=== PATIENT | female | born 1970 | race Caucasian/White ===

== ENCOUNTER 2016-05-17 08:16 | Emergency (ER) | payer OTHER ==
[~2016-05-17] VITALS: Ht 172.7 cm; Wt 122.0 kg
[~2016-05-17 08:16] MED LIST: BENA20TA PO; CLON1 PO; CYMB60CA PO; IBUP800T23 PO
[2016-05-17 08:17] VITALS: BP 168/78; PULSE 93; RESP 18; TEMP 98.7; O2SAT 97
[2016-05-17] MEDS ORDERED: BENA20TA PO (08:22)
[2016-05-17] MEDS ORDERED: CLON1 PO (08:22)
--- NOTE | 2016-05-17 08:24 | PD ---
HPI Chief Complaint: Fall Time Seen by Provider: 08:19 Travel History International Travel<30 days: No Contact w/Intl Traveler<30days: No Traveled to known affect area: No History of Present Illness HPI 45-year-old female patient presents to the ER today brought in by EMS after she states that she tripped this morning on her cat and fell hitting her chin and her lower back region. She states that she initially she was in so much pain she could not get up on her own. She states that her pain is currently an 8 out of 10. She denies any head injury or loss of consciousness. She states that the pain worsens with movement of her back. She denies any numbness or weakness in the legs. She denies any incontinence. Modifying Factors: None Associated Signs & Symptoms: Trip and fall, lower back injury and chin injury Risk Factors: None PFSH Past Medical History Depression: Yes Cardiovascular Problems: Yes Hypertension: Yes Kidney Stones: Yes (X3) Menopausal: Yes Past Surgical History Section: Yes (X2) Cholecystectomy: Yes Hysterectomy: Yes Social History Alcohol Use: No Tobacco Use: Yes (1PPD) Substance Use: No Allergies-Medications (Allergen,Severity, Reaction): Coded Allergies: No Known Allergies (Verified , 02/09/15) Reported Meds & Prescriptions Reported Meds & Active Scripts Active Reported Klonopin (Clonazepam) 1 Mg Tab 1 Mg PO DAILY Benazepril (Benazepril HCl) 20 Mg Tab 20 Mg PO BID Review of Systems Except as stated in HPI: all other systems reviewed are Neg Physical Exam Narrative GENERAL: Well-nourished, well-developed middle age white female patient in no acute distress. SKIN: Warm and dry. HEAD: Normocephalic. Mild ecchymosis of the inferior portion of the chin with no obvious deformities. Mildly tender palpation. EYES: No scleral icterus. No injection or drainage. NECK: Supple, trachea midline. CARDIOVASCULAR: Regular rate and rhythm without murmurs, gallops, or rubs. RESPIRATORY: Breath sounds equal bilaterally. No accessory muscle use. GASTROINTESTINAL: Abdomen soft, non-tender, nondistended. MUSCULOSKELETAL: No cyanosis, or edema. BACK: Tender to palpation in the right lower lumbar paraspinal area without obvious deformity. No CVA tenderness. Pelvis: Stable and nontender to palpation. Nontender range of motion at the hips. NEUROLOGICAL: Awake and alert. Cranial nerves II through XII intact. Motor and sensory grossly within normal limits. Five out of 5 muscle strength in all muscle groups. Normal speech. Data Data Last Documented VS Vital Signs Date Time Temp Pulse Resp B/P Pulse Ox O2 Delivery O2 Flow Rate FiO2 05/17/16 08:20 18 Room Air 05/17/16 08:17 98.7 93 168/[address] Lumb Spine W/O Contrast (05/17/16 08:19) Ct Facial Bones W/O Iv Cont (05/17/16 08:19) MDM Medical Decision Making Medical Screen Exam Complete: Yes Emergency Medical Condition: Yes Medical Record Reviewed: Yes Interpretation(s) Last [address] 05/17/16818 Signed Impressions: Service Date/Time: Tuesday, May 17, 2016 08:40 - CONCLUSION: 1. No acute fracture or malalignment. 2. Degenerative disc change at the L3-4 through L5- S1 levels. Jimenez Sheikh MD Differential Diagnosis Trip and fall, chin injury, lower back injuryfractures versus contusions versus strain Narrative Course CAT scans of the facial area and chin and L-spine did not reveal any signs of acute injuries. At this point, my plan would be to release the patient with follow-up to primary care physician. Return for any worsening in pain or new symptoms as needed. The plan has been discussed with the patient and she states understanding. Diagnosis Primary Impression: Chin contusion Additional Impression: CONTUSION OF LOWER BACK AND PELVIS, INITIAL ENCOUNTER Med/Other Pt SpecificInfo: Prescription(s) given Scripts Tramadol 50 Mg Tab50 Mg PO Q6H PRN (PAIN) #15 TAB Ref 0 Prov:Nelia Weir MD 05/17/16 Disposition: DISCHARGE HOME Condition: Stable Nelia Weir MD May 17, 2016 08:24
--- NOTE | 2016-05-17 09:14 | RADRPT ---
EXAM DATE/TIME: 05/17/2016 08:40 [facility] COMPARISON: No previous studies available for comparison. INDICATIONS : Patient fell, complains of right flank pain RADIATION DOSE: 37.49 CTDIvol (mGy) MEDICAL HISTORY : Hypertension. SURGICAL HISTORY : Cholecystectomy. Hysterectomy. ENCOUNTER: Initial ACUITY: 1 day PAIN SCALE: 4/10 LOCATION: Right flank TECHNIQUE: Volumetric scanning of the lumbar spine was performed. Multiplanar reconstructions in the sagittal, coronal and oblique axial planes were performed. Using automated exposure control and adjustment of the mA and/or kV according to patient size, radiation dose was kept as low as reasonably achievable t o obtain optimal diagnostic quality images. FINDINGS: VERTEBRAE: Normal vertebral body height. Degenerative disc changes are present at the L3-4 through L5-S1 levels with disc space narrowing and mild hypertrophic change. There is mild scoliosis. ALIGNMENT: No evidence of subluxation. The axial images demonstrate that the vertebral bodies and posterior elements are intact with no evid ence of fracture. The visualized portions upper sacrum are intact as well. There is a mild scoliosis. Degenerative changes are again noted at the L3-4 through L5-S1 levels with disc osteophyte complexes . There are degenerative changes involving the lower facet joints. CONCLUSION: 1. No acute fracture or malalignment. 2. Degenerative disc change at the L3-4 through L5-S1 levels. Jimenez Sheikh MD on May 17, 2016 at 9:10 Board Certified Radiologist. This report was verified electronically.
--- NOTE | 2016-05-17 09:32 | RADRPT ---
EXAM DATE/TIME: 05/17/2016 08:35 [facility] COMPARISON: No previous studies available for comparison. INDICATIONS: Patient fell, hit chin RADIATION DOSE: 52.75 CTDIvol (mGy) MEDICAL HISTORY: Hypertension. SURGICAL HISTORY: Cholecystectomy. Hysterectomy. ENCOUNTER: Initial ACUITY: 1 day PAIN SCORE: 3/10 LOCATION: Chin TECHNIQUE: Volumetric scanning of the facial bones was performed. Using automated exposure control and adjustme nt of the mA and/or kV according to patient size, radiation dose was kept as low as reasonably achiev able to obtain optimal diagnostic quality images. FINDINGS: There is no acute fracture or dislocation of the facial bones. Mucous retention cyst is noted within the left maxillary sinus. Mild mucosal thickening is noted within the maxillary sinuses and bilater al ethmoid air cells. No air fluid is noted within the paranasal sinuses. The orbits are intact. T he mandible is intact without fracture. CONCLUSION: 1. No acute fracture or dislocation of the facial bones. 2. Mucous retention cyst within the left maxillary sinus as well as mild mucosal thickening involvin g the bilateral maxillary and ethmoid air cells. Khris Castillo MD on May 17, 2016 at 9:04 Board Certified Radiologist. This report was verified electronically.
[2016-05-17] MEDS ORDERED: TRAM50TA PO (09:42)
[2016-05-17 10:09] VITALS: BP 130/77; TEMP 97.8
== END 2016-05-17 10:09 | disposition home or self-care (01) ==
LOC: NEPC 08:16
DX: S00.83XA Contusion of other part of head, initial encounter (principal); S30.0XXA Contusion of lower back and pelvis, initial encounter; I10 Essential (primary) hypertension; F17.210 Nicotine dependence, cigarettes, uncomplicated; W01.0XXA Fall on same level from slipping, tripping and stumbling without subsequent striking against object, initial encounter; Y92.009 Unspecified place in unspecified non-institutional (private) residence as the place of occurrence of the external cause
CPT/HCPCS: 70486; 72131

== ENCOUNTER 2017-01-11 08:12 | Inpatient (IN) | payer OTHER ==
[2017-01-11] VITALS (7 sets, daily range): BP systolic 125–171; BP diastolic 60–79; PULSE 96–128; RESP 16–20; TEMP 98.9–101.1; O2SAT 96–100
[~2017-01-11] VITALS: Ht 172.7 cm; Wt 140.2 kg
[~2017-01-11 08:12] MED LIST changes: -CYMB60CA PO; -IBUP800T23 PO; +TRAM50TA PO
[2017-01-11] MEDS ORDERED: DOXY100C PO (08:30)
[2017-01-11] MEDS ORDERED: SODIUM CHLOR 0.9% 1000 ML INJ 1,000 ML IV ONE ×3 (08:36)
[2017-01-11] MEDS ORDERED: SODIUM CHLOR 0.9% 1000 ML INJ 600 ML IV ONE (08:36)
[2017-01-11] MEDS ORDERED: ACETAMINOPHEN 325 MG TAB PO ONE (08:45)
--- NOTE | 2017-01-11 08:49 | PD ---
HPI Chief Complaint: Respiratory Symptoms Time Seen by Provider: 08:29 Travel History International Travel<30 days: No Contact w/Intl Traveler<30days: No Traveled to known affect area: No History of Present Illness HPI 46-year-old female presents with fever, cough and general ill feeling for the past couple of weeks. She states her primary care physician placed her on Augmentin and then switched her to doxycycline but she still not feeling good. She states she's had a couple episodes where she's coughed so much she threw up. She states she took Motrin this morning at 6:30 AM. She denies any other concurrent complaints. She feels worse when she moves around. She states she has not had any imaging or blood work and this was all through her primary care physician. PFSH Past Medical History Anxiety: Yes Depression: Yes Cardiovascular Problems: Yes Diminished Hearing: No Hypertension: Yes Kidney Stones: Yes (X3) ?: Not Menopausal: Yes Past Surgical History Section: Yes (X2) Cholecystectomy: Yes Hysterectomy: Yes Social History Alcohol Use: No Tobacco Use: Yes (1PPD) Substance Use: No Allergies-Medications (Allergen,Severity, Reaction): Coded Allergies: No Known Allergies (Verified , 02/09/15) Reported Meds & Prescriptions Reported Meds & Active Scripts Active Reported Doxycycline Hyclate 100 Mg Cap 100 Mg PO BID Klonopin (Clonazepam) 1 Mg Tab 1 Mg PO DAILY Benazepril (Benazepril HCl) 20 Mg Tab 20 Mg PO DAILY Review of Systems Except as stated in HPI: all other systems reviewed are Neg Physical Exam Narrative GENERAL: Well-nourished, well-developed patient. SKIN: Warm and dry. HEAD: Normocephalic and atraumatic. EYES: No injection or drainage. ENT: No nasal drainage noted. NECK: Supple, trachea midline. CARDIOVASCULAR: Regular rate and rhythm RESPIRATORY: Breath sounds equal bilaterally at apices. No accessory muscle use. GASTROINTESTINAL: Abdomen soft, non-tender, nondistended. EXTREMITIES: No edema. NEUROLOGICAL: Awake and alert. Motor and sensory grossly within normal limits. Normal speech. Data Data Last Documented VS Vital Signs Date Time Temp Pulse Resp B/P (MAP) Pulse Ox O2 Delivery O2 Flow Rate FiO2 01/11/17 08:49 97 Room Air 01/11/17 08:14 101.0 128 20 Orders Orders Electrocardiogram (01/11/17 08:36) Complete Blood Count With Diff (01/11/17 08:36) Comprehensive Metabolic Panel (01/11/17 08:36) Prothrombin Time / Inr (Pt) (01/11/17 08:36) Act Partial Throm Time (Ptt) (01/11/17 08:36) Lactic Acid Sepsis Protocol (01/11/17 08:36) Magnesium (Mg) (01/11/17 08:36) Phosphorus (Po4) (01/11/17 08:36) Urinalysis - C+S If Indicated (01/11/17 08:36) Influenzae A/B Antigen (01/11/17 08:36) Blood Culture (01/11/17 08:36) Chest, Single Ap (01/11/17 08:36) Ecg Monitoring (01/11/17 08:36) Iv Access Insert/Monitor (01/11/17 08:36) Oximetry (01/11/17 08:36) Acetaminophen (Tylenol) (01/11/17 08:45) Sodium Chlor 0.9% 1000 Ml Inj (Ns 1000 M (01/11/17 08:36) Sodium Chlor 0.9% 1000 Ml Inj (Ns 1000 M (01/11/17 08:36) Sodium Chlor 0.9% 1000 Ml Inj (Ns 1000 M (01/11/17 08:36) Sodium Chlor 0.9% 1000 Ml Inj (Ns 1000 M (01/11/17 08:36) Ceftriaxone Inj (Rocephin Inj) (01/11/17 08:58) Azithromycin Inj (Zithromax Inj) (01/11/17 08:58) Urine Culture (01/11/17 08:45) Potassium Chloride Eff (K-Lyte Cl Eff) (01/11/17 10:00) Admit Order (Ed Use Only) (01/11/17 10:27) Labs Laboratory Tests Test 01/11/17 08:35 01/11/17 08:40 01/11/17 08:45 White Blood Count 21.4 TH/MM3 Red Blood Count 3.97 MIL/MM3 Hemoglobin 12.5 GM/DL Hematocrit 37.1 % Mean Corpuscular Volume 93.4 FL Mean Corpuscular Hemoglobin 31.5 PG Mean Corpuscular Hemoglobin Concent 33.7 % Red Cell Distribution Width 13.2 % Platelet Count 293 TH/MM3 Mean Platelet Volume 7.1 FL Neutrophils (%) (Auto) 87.9 % Lymphocytes (%) (Auto) 6.1 % Monocytes (%) (Auto) 4.9 % Eosinophils (%) (Auto) 0.9 % Basophils (%) (Auto) 0.2 % Neutrophils # (Auto) 18.8 TH/MM3 Lymphocytes # (Auto) 1.3 TH/MM3 Monocytes # (Auto) 1.1 TH/MM3 Eosinophils # (Auto) 0.2 TH/MM3 Basophils # (Auto) 0.0 TH/MM3 CBC Comment DIFF FINAL Differential Comment Prothrombin Time 11.4 SEC Prothromb Time International Ratio 1.0 RATIO Activated Partial Thromboplast Time 33.0 SEC Blood Urea Nitrogen 7 MG/DL Creatinine 0.72 MG/DL Random Glucose 106 MG/DL Total Protein 7.2 GM/DL Albumin 3.2 GM/DL Calcium Level 9.2 MG/DL Phosphorus Level 2.3 MG/DL Magnesium Level 1.6 MG/DL Alkaline Phosphatase 125 U/L Aspartate Amino Transf (AST/SGOT) 12 U/L Alanine Aminotransferase (ALT/SGPT) 20 U/L Total Bilirubin 0.5 MG/DL Sodium Level 135 MEQ/L Potassium Level 3.0 MEQ/L Chloride Level 102 MEQ/L Carbon Dioxide Level 22.6 MEQ/L Anion Gap 10 MEQ/L Estimat Glomerular Filtration Rate 88 ML/MIN Lactic Acid Level 1.2 mmol/L Urine Color YELLOW Urine Turbidity HAZY Urine pH 6.5 Urine Specific [place] 1.024 Urine Protein 100 mg/dL Urine Glucose (UA) NEG mg/dL Urine Ketones 10 mg/dL Urine Occult Blood MOD Urine Nitrite NEG Urine Bilirubin NEG Urine Urobilinogen LESS THAN 2.0 MG/DL Urine Leukocyte Esterase SMALL Urine RBC 26 /hpf Urine WBC 7 /hpf Urine Squamous Epithelial Cells 13 /hpf Urine Transitional Epithelial Cells <1 /hpf Urine Bacteria MOD /hpf Urine Hyaline Casts 4 /lpf Urine Mucus MOD /lpf Microscopic Urinalysis Comment CATH-CULTURE IND MDM Medical Decision Making Medical Screen Exam Complete: Yes Emergency Medical Condition: Yes Medical Record Reviewed: Yes (past history confirmed) Interpretation(s) EKG is sinus tachycardia at 105 without STEMI criteria or consecutive T-wave inversion CBC & BMP Diagram 01/11/17 08:35 Last 24 hours Impressions Chest X-Ray 01/11/17 0836 Signed Impressions: Service Date/Time: Wednesday, January 11, 2017 08:50 - CONCLUSION: 1. Left-sided pneumonia as above. Followup examination is recommended if clinically indicated. Colin Yin MD CBC & BMP Diagram 01/11/17 08:35 Total Protein 7.2, Albumin 3.2 L, Calcium Level 9.2, Phosphorus Level 2.3 L, Magnesium Level 1.6, Alkaline Phosphatase 125 H, Aspartate Amino Transf (AST/ SGOT) 12 L, Alanine Aminotransferase (ALT/SGPT) 20, Total Bilirubin 0.5 potassium replaced Differential Diagnosis Pneumonia, influenza, URI, sepsis Narrative Course Will check blood work, chest x-ray and dose with IV fluids and reevaluate cxr reviewed, given rocephin and azithromycin for coverage, will admit for further care, patient updated Sepsis Criteria SIRS Criteria (2 or more): Temp > 100.9 or < 96.8, Heart rate over 90, WBC > 26343, < 4000 or > 10% bands Sepsis Criteria (SIRS+source): Infect source susp/known Criteria Outcome: Meets sepsis criteria Physician Communication Physician Communication dr hope agrees to admit Diagnosis Primary Impression: Sepsis Qualified Codes: A41.9 - Sepsis, unspecified organism Additional Impression: Pneumonia Qualified Codes: J18.9 - Pneumonia, unspecified organism Admitting Information Admitting Physician Requests: Admit Randi Mireles MD Jan 11, 2017 08:49
--- NOTE | 2017-01-11 08:56 | RADRPT ---
EXAM DATE/TIME: 01/11/2017 08:50 [facility] COMPARISON: No previous studies available for comparison. INDICATIONS : Fever. MEDICAL HISTORY : Hypertension. SURGICAL HISTORY : None. ENCOUNTER: Initial ACUITY: 2 weeks PAIN SCORE: 0/10 LOCATION: Bilateral chest FINDINGS: The cardiac silhouette is enlarged in transverse diameter. There is alveolar disease in the left midl robin characteristic of pneumonia. The right lung is free of acute parenchymal opacity. No pleural effu sions are identified. CONCLUSION: 1. Left-sided pneumonia as above. Followup examination is recommended if clinically indicated. Colin Yin MD on January 11, 2017 at 8:54 Board Certified Radiologist. This report was verified electronically.
[2017-01-11] MEDS ORDERED: cefTRIAXone INJ 2,000 MG in SODIUM CHLORIDE 0.9% INJ 100 ML IV STA (08:58)
[2017-01-11] MEDS ORDERED: AZITHROMYCIN INJ 500 MG in SODIUM CHLOR 0.9% 250 ML INJ 250 ML IV STA (08:58)
[2017-01-11 09:16] LABS: AUTOMATED NEUTROPHIL # 18.8 TH/MM3 (1.8-7.7); BASOPHIL % 0.2 % (0.0-2.0); EOSINOPHIL # 0.2 TH/MM3 (0-0.4); EOSINOPHIL % 0.9 % (0.0-4.0); HEMATOCRIT 37.1 % (35.0-46.0); HEMO FLAGS DIFF FINAL; LYMPH % 6.1 % (9.0-44.0); LYMPHOCYTE # 1.3 TH/MM3 (1.0-4.8); MEAN CELL VOLUME 93.4 FL (80.0-100.0); MEAN CORPUSCULAR HEMOGLOBIN 31.5 PG (27.0-34.0); MEAN CORPUSCULAR HGB CONC 33.7 % (32.0-36.0); MONO % 4.9 % (0.0-8.0); NEUT % 87.9 % (16.0-70.0); PLATELET COUNT 293 TH/MM3 (150-450); RED BLOOD COUNT 3.97 MIL/MM3 (4.00-5.30); RED CELL DISTRIBUTION WIDTH 13.2 % (11.6-17.2); WHITE BLOOD COUNT 21.4 TH/MM3 (4.0-11.0)
[2017-01-11 09:20] LABS: BACTERIA, URINE MOD /hpf; BLOOD, URINE MOD (NEG); GLUCOSE,URINE NEG (NEG); HYALINE CAST, URINE 4 /lpf (RARE); KETONE, URINE 10 mg/dL (NEG); MUCUS URINE MOD /lpf (OCC); NITRITE,URINE NEG (NEG); PH, URINE 6.5 (5.0-8.5); SQUAMOUS EPITHELIAL CELL URINE 13 /hpf (0-5); TRANSITIONAL EPI CELLS, URINE <1 /hpf; URINE COLOR YELLOW (YELLW/STRAW)
[2017-01-11 09:21] LABS: COMMENT (UR) CATH-CULTURE IND; CULTURE IF INDICATED CATH CULTURE IND
[2017-01-11 09:21] LABS: PROTHROMBIN TIME - PATIENT 11.4 SEC (9.8-11.6)
[2017-01-11 09:35] LABS: ANION GAP 10 MEQ/L (5-15); AST (GOT) 12 U/L (15-37); BICARBONATE 22.6 MEQ/L (21.0-32.0); BLOOD UREA NITROGEN 7 MG/DL (7-18); CHLORIDE 102 MEQ/L (98-107); GLOMERULAR FILTRATION RATE 88 ML/MIN (>89); MAGNESIUM 1.6 MG/DL (1.5-2.5); SODIUM (NA) 135 MEQ/L (136-145)
[2017-01-11 09:37] LABS: ALT (GPT) 20 U/L (10-53)
[2017-01-11 09:39] LABS: ALKALINE PHOSPHATASE 125 U/L (45-117); TOTAL BILIRUBIN ADULT 0.5 MG/DL (0.2-1.0)
[2017-01-11] MEDS ORDERED: POTASSIUM CHLORIDE 25 MEQ EFFERVESCENT TAB PO ONE (10:00)
[2017-01-11] MEDS ORDERED: ACETAMINOPHEN 325 MG TAB PO PRN (10:30)
[2017-01-11] MEDS ORDERED: RESP: ALBUTEROL 2.5 MG/IPRATROPIUM 0.5 MG NEB (PRN) NEB (10:30)
--- NOTE | 2017-01-11 11:44 | HHI.HP ---
[facility] Unknown Admission Diagnosis pneumonia, sepsis Diagnoses: (1) Pneumonia Diagnosis: Principal (2) Sepsis Diagnosis: Principal Chief Complaint: cough Travel History International Travel<30 Days: No Contact w/Intl Traveler <30 Da: No Traveled to Known Affected Are: No Sepsis Criteria SIRS Criteria (2 or more): Temp > 100.9 or < 96.8, Heart rate over 90, WBC > 66041, < 4000 or > 10% bands Sepsis Criteria (SIRS+source): Infect source susp/known Criteria Outcome: Meets sepsis criteria History of Present Illness patient is a 46 y/o female with history of hypertension who presented to ER with three-week history of cough. she says that cough is productive of dark- greenish sputum- however she started to see some streaks of blood in her sputum yesterday. she had some on and off fever, chills and night sweats at home. she was treated initially with augmentin for seven days and later on with few-day course of Doxycyline with no significant improvement. Review of Systems Constitutional: COMPLAINS OF: Fever, Chills, Night Sweats, DENIES: Weight loss Eyes: DENIES: Blurred vision, Diplopia, Vision loss, Double Vision Ears, nose, mouth, throat: DENIES: Tinnitus, Vertigo, Throat pain, Epistaxis Respiratory: COMPLAINS OF: Cough, Hemoptysis, Shortness of breath, DENIES: Apneas, Snoring, Wheezing, Sputum production Cardiovascular: DENIES: Chest pain, Palpitations, Syncope, Dyspnea on Exertion , PND, Lower Extremity Edema, Orthopnea, Claudication Gastrointestinal: DENIES: Abdominal pain, Black stools, Bloody stools, Constipation, Diarrhea, Nausea, Vomiting, Difficulty Swallowing, Anorexia Genitourinary: DENIES: Urinary frequency, Urgency, Hematuria, Dysuria Musculoskeletal: DENIES: Joint pain, Muscle aches, Stiffness, Joint Swelling Integumentary: DENIES: Rash Neurologic: DENIES: Abnormal gait, Headache, Localized weakness, Paresthesias, Seizures, Speech Problems, Tremor, Poor Balance Psychiatric: DENIES: Anxiety, Confusion, Mood changes, Depression, Hallucinations, Agitation, Suicidal Ideation, Homicidal Ideation, Delusions Past Family Social History Past Medical History hypertension Past Surgical History Reported Medications clonazepam benazepril Allergies: Coded Allergies: No Known Allergies (Verified , 02/09/15) Active Ordered Medications Current Medications Acetaminophen (Tylenol) 650 mg ONCE ONCE PO Last administered on 01/11/17 08: 49; Start 01/11/17 at 08:45; Stop 01/11/17 at 08:46; Status DC Sodium Chloride 1,000 ml @ 1,000 mls/hr Q1H ONCE IV Last administered on 08:48; Start 01/11/17 at 08:36; Stop 01/11/17 at 09:35; Status DC Sodium Chloride 1,000 ml @ 1,000 mls/hr Q1H ONCE IV Last administered on 08:49; Start 01/11/17 at 08:36; Stop 01/11/17 at 09:35; Status DC Sodium Chloride 1,000 ml @ 1,000 mls/hr Q1H ONCE IV Last administered on 09:53; Start 01/11/17 at 08:36; Stop 01/11/17 at 09:35; Status DC Sodium Chloride 600 ml @ 1,000 mls/hr Q36M ONCE IV Last administered on 09:53; Start 01/11/17 at 08:36; Stop 01/11/17 at 09:14; Status DC Ceftriaxone Sodium 2000 mg/ Sodium Chloride 100 ml @ 200 mls/hr ONCE STAT IV Last administered on 01/11/17 09:54; Start 01/11/17 at 08:58; Stop 01/11/17 at 09:27; Status DC Azithromycin 500 mg/Sodium Chloride 250 ml @ 250 mls/hr ONCE STAT IV Last administered on 01/11/17 10:40; Start 01/11/17 at 08:58; Stop 01/11/17 at 09:57 ; Status DC Potassium Bicarb/ Potassium Chloride (K-Lyte Cl Eff) 50 meq ONCE ONCE PO Last administered on 01/11/17 10:41; Start 01/11/17 at 10:00; Stop 01/11/17 at 10:01; Status DC Acetaminophen (Tylenol) 650 mg Q4H PRN PO FEVER/PAIN/HEADACHE; Start 01/11/17 at 10:30 Ondansetron HCl (Zofran Inj) 4 mg Q8H PRN IV PUSH NAUSEA; Start 01/11/17 at 10: 30 Albuterol/ Ipratropium (Duoneb Neb) 1 ampule Q4HR NEB PRN NEB SHORTNESS OF BREATH; Start 01/11/17 at 10:30 Potassium Chloride (KCl) 30 meq ONCE ONCE PO ; Start 01/11/17 at 14:00; Stop 01/11/17 at 14:01 Family History diabetes in mother. Social History smokes a pack a day- doesn't drink. Physical Exam Vital Signs Vital Signs Date Time Temp Pulse Resp B/P (MAP) Pulse Ox O2 Delivery O2 Flow Rate FiO2 01/11/17 10:56 98.9 96 18 134/60 (84) 96 01/11/17 08:49 97 Room Air 01/11/17 08:14 101.0 128 20 171/78 (109) 97 Room Air Physical Exam GENERAL: This is a well-nourished, well-developed patient, in no apparent distress. SKIN: No rashes, ecchymoses or lesions. Cool and dry. HEAD: Atraumatic. Normocephalic. No temporal or scalp tenderness. EYES: Pupils equal round and reactive. Extraocular motions intact. No scleral icterus. No injection or drainage. ENT: Nose without bleeding, purulent drainage or septal hematoma. Throat without erythema, tonsillar hypertrophy or exudate. Uvula midline. Airway patent. NECK: Trachea midline. No JVD or lymphadenopathy. Supple, nontender, no meningeal signs. CARDIOVASCULAR: Regular rate and rhythm without murmurs, gallops, or rubs. RESPIRATORY: Clear to auscultation. Breath sounds equal bilaterally. No wheezes , rales, or rhonchi. GASTROINTESTINAL: Abdomen soft, non-tender, nondistended. No hepato-splenomegaly , or palpable masses. No guarding. MUSCULOSKELETAL: Extremities without clubbing, cyanosis, or edema. No joint tenderness, effusion, or edema noted. No calf tenderness. Negative Homans sign bilaterally. NEUROLOGICAL: Awake and alert. Cranial nerves II through XII intact. Motor and sensory grossly within normal limits. Five out of 5 muscle strength in all muscle groups. Normal speech. Laboratory Laboratory Tests Test 01/11/17 08:35 01/11/17 08:40 01/11/17 08:45 White Blood Count 21.4 Red Blood Count 3.97 Hemoglobin 12.5 Hematocrit 37.1 Mean Corpuscular Volume 93.4 Mean Corpuscular Hemoglobin 31.5 Mean Corpuscular Hemoglobin Concent 33.7 Red Cell Distribution Width 13.2 Platelet Count 293 Mean Platelet Volume 7.1 Neutrophils (%) (Auto) 87.9 Lymphocytes (%) (Auto) 6.1 Monocytes (%) (Auto) 4.9 Eosinophils (%) (Auto) 0.9 Basophils (%) (Auto) 0.2 Neutrophils # (Auto) 18.8 Lymphocytes # (Auto) 1.3 Monocytes # (Auto) 1.1 Eosinophils # (Auto) 0.2 Basophils # (Auto) 0.0 CBC Comment DIFF FINAL Differential Comment Prothrombin Time 11.4 Prothromb Time International Ratio 1.0 Activated Partial Thromboplast Time 33.0 Blood Urea Nitrogen 7 Creatinine 0.72 Random Glucose 106 Total Protein 7.2 Albumin 3.2 Calcium Level 9.2 Phosphorus Level 2.3 Magnesium Level 1.6 Alkaline Phosphatase 125 Aspartate Amino Transf (AST/SGOT) 12 Alanine Aminotransferase (ALT/SGPT) 20 Total Bilirubin 0.5 Sodium Level 135 Potassium Level 3.0 Chloride Level 102 Carbon Dioxide Level 22.6 Anion Gap 10 Estimat Glomerular Filtration Rate 88 Lactic Acid Level 1.2 Urine Color YELLOW Urine Turbidity HAZY Urine pH 6.5 Urine Specific Burdick 1.024 Urine Protein 100 Urine Glucose (UA) NEG Urine Ketones 10 Urine Occult Blood MOD Urine Nitrite NEG Urine Bilirubin NEG Urine Urobilinogen LESS THAN 2.0 Urine Leukocyte Esterase SMALL Urine RBC 26 Urine WBC 7 Urine Squamous Epithelial Cells 13 Urine Transitional Epithelial Cells <1 Urine Bacteria MOD Urine Hyaline Casts 4 Urine Mucus MOD Microscopic Urinalysis Comment CATH-CULTURE IND Date/Time Source Procedure Growth Status 01/11/17 08:40 Blood Peripheral Aerobic Blood Culture Pending Received 01/11/17 08:40 Blood Peripheral Anaerobic Blood Culture Pending Received 01/11/17 08:40 Nasal Aspirate Influenza Types A,B Antigen (BIENVENIDO) - Final NEGATIVE FOR FLU A AND B ANTIGEN.... Complete 01/11/17 08:45 Urine Catheterized Urine Urine Culture Pending Received Result Diagram: 01/11/17 0835 10/4/17 0835 Imaging Last Impressions Chest X-Ray 01/11/1736 Signed Impressions: Service Date/Time: Wednesday, January 11, 2017 08:50 - CONCLUSION: 1. Left-sided pneumonia as above. Followup examination is recommended if clinically indicated. MD Eran Prieto VTE Risk Assessment Eran VTE Risk Assessment: Mod/High Risk (score >= 2) VTE Pharm Contraindication: High risk for bleeding Eran Risk Assessment Model Point Value = 1 Point Value = 2 Point Value = 3 Point Value = 5 Age 41-60 Minor surgery BMI > 25 kg/m2 Swollen legs Varicose veins or History of unexplained or recurrent spontaneous Oral contraceptives or hormone replacement Sepsis (< 1 month) Serious lung disease, including pneumonia (< 1 month) Abnormal pulmonary function Acute myocardial infarction Congestive heart failure (< 1 month) History of inflammatory bowel disease Medical patient at bed rest Age 61-74 Arthroscopic surgery Major open surgery (> 45 min) Laparoscopic surgery (> 45 min) Malignancy Confined to bed (> 72 hours) Immobilizing plaster cast Central venous access Age >= 75 History of VTE Family history of VTE Factor V Leiden Prothrombin [id number] Lupus anticoagulant Anticardiolipin antibodies Elevated serum homocysteine Heparin-induced thrombocytopenia Other congenital or acquired thrombophilia Stroke (< 1 month) Elective arthroplasty Hip, pelvis, or leg fracture Acute spinal cord injury (< 1 month) Prophylaxis Regimen Total Risk Factor Score Risk Level Prophylaxis Regimen 0-1 Low Early ambulation 2 Moderate Order ONE of the following: *Sequential Compression Device (SCD) *Heparin 5000 units SQ BID 3-4 Higher Order ONE of the following medications: *Heparin 5000 units SQ TID *Enoxaparin/Lovenox 40 mg SQ daily (WT < 150 kg, CrCl > 30 mL/min) *Enoxaparin/Lovenox 30 mg SQ daily (WT < 150 kg, CrCl > 10-29 mL/min) *Enoxaparin/Lovenox 30 mg SQ BID (WT < 150 kg, CrCl > 30 mL/min) AND/OR *Sequential Compression Device (SCD) 5 or more Highest Order ONE of the following medications: *Heparin 5000 units SQ TID (Preferred with Epidurals) *Enoxaparin/Lovenox 40 mg SQ daily (WT < 150 kg, CrCl > 30 mL/min) *Enoxaparin/Lovenox 30 mg SQ daily (WT < 150 kg, CrCl > 10-29 mL/min) *Enoxaparin/Lovenox 30 mg SQ BID (WT < 150 kg, CrCl > 30 mL/min) AND *Sequential Compression Device (SCD) Assessment and Plan Assessment and Plan A/P - sepsis due to left-sided pneumonia/ hemoptysis- failed two courses of po antibiotics will start on IV Levauin- neb treatment as needed. follow the blood cultures and obtain sputum culture. will consult pulmonary. -hypertension; resume home meds -hypokalemia; will replace and monitor. -questionable UTI; on antibiotic- follow the UC. Discussed Condition With ER physician and the patient. Physician Certification 2 Midnight Certification Type: Admission for Inpatient Services Order for Inpatient Services The services are ordered in accordance with Medicare regulations or non- Medicare payer requirements, as applicable. In the case of services not specified as inpatient-only, they are appropriately provided as inpatient services in accordance with the 2-midnight benchmark. Estimated LOS (days): 2 days is the estimated time the patient will need to remain in the hospital, assuming treatment plan goals are met and no additional complications. Post-Hospital Plan: Home Physician Certification 2 Midnight Certification Type: Admission for Inpatient Services Order for Inpatient Services The services are ordered in accordance with Medicare regulations or non- Medicare payer requirements, as applicable. In the case of services not specified as inpatient-only, they are appropriately provided as inpatient services in accordance with the 2-midnight benchmark. Estimated LOS (days): 2 days is the estimated time the patient will need to remain in the hospital, assuming treatment plan goals are met and no additional complications. Post-Hospital Plan: Home Problem Qualifiers (1) Pneumonia: Qualified Codes: J18.9 - Pneumonia, unspecified organism (2) Sepsis: Qualified Codes: A41.9 - Sepsis, unspecified organism J Luis Payne MD Jan 11, 2017 11:43
[2017-01-11] MEDS ORDERED: LEVOFLOXACIN 500 MG PREMIX INJ 100 ML IV SCH (13:00)
--- NOTE | 2017-01-11 13:11 | MB ---
cc: Yola GARVEY DATE OF CONSULTATION 01/11/2017 HISTORY Ms. Fortune is a 46-year-old white female who has been sick for about three weeks with cough, congestion and was seen twice as an outpatient, initially given doxycycline and seen by her primary physician, Dr. Coughlin and given Augmentin. She was not feeling better and had a little shortness of breath and some slight blood streaking of her sputum so came to the ER today. A chest x-ray reveals a left midlung infiltrate consistent with pneumonia and her white count is elevated to 21,000. She is a smoker of a half-a-pack to a pack per day and smoked since she was 16. Never previously had pneumonia or any other pulmonary diagnosis. Denies preceding pulmonary illness or symptoms such as chronic cough or hemoptysis, chest pain or progressive dyspnea. PAST MEDICAL HISTORY 1. Cholecystectomy 2. Hypothyroidism 3. Hypertension 4. Previous T&A 5. Recurrent ear infections with tubes. ALLERGIES None known. MEDICATIONS Reviewed in the EMR. SOCIAL HISTORY . Two grown children in good health. Smoking as noted. No alcohol or drug abuse. Works as a loans officer. No other industrial exposures. There is a cat at home. REVIEW OF SYSTEMS No headache or visual change. No chronic abdominal complaints or vomiting. No recent diarrhea. No recent travel. No swelling in her legs. Overweight, but no recent change in diet or appetite. PHYSICAL EXAMINATION Presented with a temperature of 101, respirations 18-22, pulse initially 120 now down to 90, comfortable at rest, room air saturation 97%. HEAD, EYES, EARS, NOSE, AND THROAT: Sclerae anicteric. Pharynx is clear. Mucous membranes are moist. NECK: Neck veins are flat. No adenopathy in the neck or supraclavicular region. CHEST: Somewhat diminished, but really no significant congestion. No audible rales or wheezes. Regular heart rhythm. No harsh murmur. ABDOMEN: Obese, but soft. No peripheral edema or calf tenderness. No cyanosis or clubbing. Chest x-ray reveals a left knee midlung infiltrate. Blood cultures are pending. Influenza A and B are negative. INR is normal. Potassium is a little low at 3. BUN and creatinine are normal. Liver enzymes are not elevated. DISCUSSION Ms. Fortune presents with left midlung infiltrate, fever, elevated white count, community-acquired pneumonia. She has received Rocephin and Zithromax and has been started on Levaquin. I will increase that dose to 750. We will try to collect a sputum, do Legionella and pneumococcal antigens in the urine. She will need careful followup to ensure that this clears completely and also a CT scan at some point to look for underlying signs of potential malignancy. She did have some blood streaking of her sputum and has been a smoker for many years. Further diagnostic and/or therapeutic intervention will depend on her ongoing clinical course and response to therapy as well as followup. R. MD LOTTIE Spears/ROSITA /12:37 PM /12:55 PM
[2017-01-11] MEDS ORDERED: POTASSIUM CHLORIDE 10 MEQ CONTROLLED RELEASE TAB PO ONE (14:00)
[2017-01-11] MEDS: RESP: ALBUTEROL 2.5 MG/IPRATROPIUM 0.5 MG NEB (SCH) NEB ×2 (14:00→19:36)
--- NOTE | 2017-01-11 14:17 | EKG ---
Date Performed: 01/11/2017 Time Performed: 08:42:24 PTAGE: 46 years EKG: SINUS TACHYCARDIA NONSPECIFIC ST & T-WAVE ABNORMALITY ABNORMAL RHYTHM ECG NO PREVIOUS TRACING DOCTOR: Adrián Cook Interpretating Date/Time 01/11/2017 14:16:31
[2017-01-11] MEDS: LEVOFLOXACIN 750 MG PREMIX INJ 150 ML IV SCH (14:18)
[2017-01-11] MEDS: predniSONE 20 MG TAB PO SCH ×2 (14:18→22:27)
[2017-01-11] MEDS: ONDANSETRON HCL 4 MG/2 ML VIAL IV PUSH PRN (14:19)
[2017-01-11] MEDS ORDERED: ACETAMINOPHEN/CODEINE 300 MG/30 MG TAB PO ONE (20:00)
[2017-01-12] VITALS (9 sets, daily range): BP systolic 114–135; BP diastolic 57–79; PULSE 85–100; RESP 18–20; TEMP 98.4–99.1; O2SAT 93–98
[2017-01-12] MEDS: ONDANSETRON HCL 4 MG/2 ML VIAL IV PUSH PRN (00:35)
[2017-01-12] MEDS: RESP: ALBUTEROL 2.5 MG/IPRATROPIUM 0.5 MG NEB (SCH) NEB ×3 (08:12→20:15)
[2017-01-12] MEDS ORDERED: clonazePAM 1 MG TAB PO SCH (09:00)
[2017-01-12 09:19] LABS: AUTOMATED NEUTROPHIL # 16.7 TH/MM3 (1.8-7.7); BASOPHIL % 0.2 % (0.0-2.0); EOSINOPHIL % 0.1 % (0.0-4.0); HEMATOCRIT 35.9 % (35.0-46.0); HEMO FLAGS DIFF FINAL; LYMPH % 7.1 % (9.0-44.0); LYMPHOCYTE # 1.3 TH/MM3 (1.0-4.8); MEAN CORPUSCULAR HEMOGLOBIN 30.9 PG (27.0-34.0); MEAN CORPUSCULAR HGB CONC 32.9 % (32.0-36.0); MONO % 1.5 % (0.0-8.0); NEUT % 91.1 % (16.0-70.0); PLATELET COUNT 319 TH/MM3 (150-450); RED BLOOD COUNT 3.82 MIL/MM3 (4.00-5.30); RED CELL DISTRIBUTION WIDTH 13.7 % (11.6-17.2); WHITE BLOOD COUNT 18.3 TH/MM3 (4.0-11.0)
[2017-01-12] MEDS: predniSONE 20 MG TAB PO SCH ×2 (09:25→20:53)
[2017-01-12] MEDS: LISINOPRIL 20 MG TAB PO SCH (09:25)
[2017-01-12 09:52] LABS: BICARBONATE 25.4 MEQ/L (21.0-32.0); POTASSIUM 3.5 MEQ/L (3.5-5.1)
--- NOTE | 2017-01-12 11:54 | HHI.PR ---
Subjective Remarks looks and feels better today. sob has improved. no fever. no new complaints. Objective Vitals Vital Signs Date Time Temp Pulse Resp B/P (MAP) Pulse Ox O2 Delivery O2 Flow Rate FiO2 01/12/17 08:49 98.8 91 18 132/70 (90) 96 01/12/17 08:14 96 01/12/17 07:53 Room Air 01/12/17 04:00 98.5 85 20 114/71 (85) 96 01/12/17 00:00 98.6 86 20 115/63 (80) 97 01/11/17 20:00 99.1 110 20 148/79 (102) 96 01/11/17 17:22 99 21 01/11/17 17:05 101.1 114 16 150/71 (97) 100 01/11/17 12:47 99.2 104 16 125/63 (83) 97 01/11/17 12:02 Room Air I/O 01/11/17 01/11/17 01/11/17 01/12/17 01/12/17 01/12/17 07:00 15:00 23:00 07:00 15:00 23:00 Intake Total 390 ml Balance 390 ml Intake Oral 240 ml IV Total 150 ml # Voids 1 1 Result Diagram: 01/12/1759 01/12/1759 Imaging Last Impressions Chest X-Ray 01/11/1736 Signed Impressions: Service Date/Time: Wednesday, January 11, 2017 08:50 - CONCLUSION: 1. Left-sided pneumonia as above. Followup examination is recommended if clinically indicated. Colin Yin MD Objective Remarks GENERAL: This is a well-nourished, well-developed patient, in no apparent distress. CARDIOVASCULAR: Regular rate and regular rhythm without murmurs, gallops, or rubs. RESPIRATORY: Clear to auscultation. Breath sounds equal bilaterally. No wheezes , rales, or rhonchi. GASTROINTESTINAL: Abdomen soft, non-tender, nondistended. Normal, active bowel sounds MUSCULOSKELETAL: Extremities without clubbing, cyanosis, or edema. NEURO: Alert & Oriented x4 to person, place, time, situation. Moves all ext x4 Procedures none Medications and IVs Current Medications Acetaminophen (Tylenol) 650 mg ONCE ONCE PO Last administered on 01/11/17 08: 49; Start 01/11/17 at 08:45; Stop 01/11/17 at 08:46; Status DC Sodium Chloride 1,000 ml @ 1,000 mls/hr Q1H ONCE IV Last administered on 08:48; Start 01/11/17 at 08:36; Stop 01/11/17 at 09:35; Status DC Sodium Chloride 1,000 ml @ 1,000 mls/hr Q1H ONCE IV Last administered on 08:49; Start 01/11/17 at 08:36; Stop 01/11/17 at 09:35; Status DC Sodium Chloride 1,000 ml @ 1,000 mls/hr Q1H ONCE IV Last administered on 09:53; Start 01/11/17 at 08:36; Stop 01/11/17 at 09:35; Status DC Sodium Chloride 600 ml @ 1,000 mls/hr Q36M ONCE IV Last administered on 09:53; Start 01/11/17 at 08:36; Stop 01/11/17 at 09:14; Status DC Ceftriaxone Sodium 2000 mg/ Sodium Chloride 100 ml @ 200 mls/hr ONCE STAT IV Last administered on 01/11/17 09:54; Start 01/11/17 at 08:58; Stop 01/11/17 at 09:27; Status DC Azithromycin 500 mg/Sodium Chloride 250 ml @ 250 mls/hr ONCE STAT IV Last administered on 01/11/17 10:40; Start 01/11/17 at 08:58; Stop 01/11/17 at 09:57 ; Status DC Potassium Bicarb/ Potassium Chloride (K-Lyte Cl Eff) 50 meq ONCE ONCE PO Last administered on 01/11/17 10:41; Start 01/11/17 at 10:00; Stop 01/11/17 at 10:01; Status DC Acetaminophen (Tylenol) 650 mg Q4H PRN PO FEVER/PAIN/HEADACHE Last administered on 01/11/17 17:06; Start 01/11/17 at 10:30 Ondansetron HCl (Zofran Inj) 4 mg Q8H PRN IV PUSH NAUSEA Last administered on 01/12/17 00:35; Start 01/11/17 at 10:30 Albuterol/ Ipratropium (Duoneb Neb) 1 ampule Q4HR NEB PRN NEB SHORTNESS OF BREATH Last administered on 01/11/17 17:22; Start 01/11/17 at 10:30 Potassium Chloride (KCl) 30 meq ONCE ONCE PO Last administered on 01/11/17 14 :18; Start 01/11/17 at 14:00; Stop 01/11/17 at 14:01; Status DC Levofloxacin/ Dextrose 100 ml @ 100 mls/hr Q24H IV ; Start 01/11/17 at 13:00; Stop 01/11/17 at 13:00; Status DC Lisinopril (Prinivil) 20 mg DAILY PO Last administered on 01/12/17 09:25; Start 01/12/17 at 09:00 Clonazepam (KlonoPIN) 1 mg DAILY PO Last administered on 01/12/17 09:25; Start 01/12/17 at 09:00 Levofloxacin/ Dextrose 150 ml @ 100 mls/hr Q24H IV Last administered on 14:18; Start 01/11/17 at 13:00 Albuterol/ Ipratropium (Duoneb Neb) 1 ampule TID NEB NEB Last administered on 01/12/17 08:12; Start 01/11/17 at 14:00 Prednisone (Deltasone) 20 mg BID PO Last administered on 01/12/17 09:25; Start 01/11/17 at 12:45 Acetaminophen/ Codeine Phosphate (Tylenol-Codeine #3) 1 tab ONCE ONCE PO Last administered on 01/11/17 20:09; Start 01/11/17 at 20:00; Stop 01/11/17 at 20:01 ; Status DC A/P Assessment and Plan A/P - sepsis due to left-sided pneumonia/ hemoptysis- failed two courses of po antibiotics continue with IV Levauin- neb treatment as needed. follow the cultures. pulmonary consult appreciated. -hypertension; resumed home meds -hypokalemia; replaced. -questionable UTI; on antibiotic- follow the UC. Discharge Planning dc home tomorrow if stable. J Luis Payne MD Jan 12, 2017 11:54
[2017-01-12] MEDS: LEVOFLOXACIN 750 MG PREMIX INJ 150 ML IV SCH (13:00)
[2017-01-12] MEDS: clonazePAM 1 MG TAB PO PRN (20:53)
[2017-01-13] VITALS: BP 135/76; PULSE 84; RESP 18; TEMP 97.7; O2SAT 97
[2017-01-13 04:00] VITALS: BP 114/72; PULSE 81; RESP 20; TEMP 97.9; O2SAT 96
[2017-01-13] MEDS: RESP: ALBUTEROL 2.5 MG/IPRATROPIUM 0.5 MG NEB (SCH) NEB ×2 (08:00→13:05)
[2017-01-13 08:12] LABS: AUTOMATED NEUTROPHIL # 14.4 TH/MM3 (1.8-7.7); BASOPHIL % 0.3 % (0.0-2.0); EOSINOPHIL # 0.1 TH/MM3 (0-0.4); EOSINOPHIL % 0.3 % (0.0-4.0); HEMATOCRIT 37.7 % (35.0-46.0); LYMPH % 10.1 % (9.0-44.0); LYMPHOCYTE # 1.7 TH/MM3 (1.0-4.8); MEAN CELL VOLUME 94.6 FL (80.0-100.0); MEAN CORPUSCULAR HEMOGLOBIN 31.1 PG (27.0-34.0); MEAN CORPUSCULAR HGB CONC 32.9 % (32.0-36.0); MONO % 3.7 % (0.0-8.0); NEUT % 85.6 % (16.0-70.0); PLATELET COUNT 338 TH/MM3 (150-450); RED BLOOD COUNT 3.98 MIL/MM3 (4.00-5.30); RED CELL DISTRIBUTION WIDTH 13.8 % (11.6-17.2); WHITE BLOOD COUNT 16.8 TH/MM3 (4.0-11.0)
[2017-01-13 08:23] LABS: HEMO FLAGS AUTO DIFF
[2017-01-13] MEDS: predniSONE 20 MG TAB PO SCH (08:26)
[2017-01-13] MEDS: LISINOPRIL 20 MG TAB PO SCH (08:26)
[2017-01-13 08:58] VITALS: BP 137/71; PULSE 74; RESP 18; TEMP 97.6; O2SAT 96
[2017-01-13 09:36] LABS: BANDS 15 % (0-6); METAMYELOCYTES 3 % (0-1); MYELOCYTES 5 % (0-0); NEUTROPHIL # MANUAL DIFF 14.3 TH/MM3 (1.8-7.7); POLYS (SEG NEUTROPHILS) 62 % (16-70); WBC DIFF SAMPLE 100
[2017-01-13 09:37] LABS: PLATELET ESTIMATE SMEAR NORMAL (NORMAL); PLATELET MORPHOLOGY NORMAL (NORMAL); SCAN/DIFF FINAL DIFF MANUAL
[2017-01-13] MEDS: clonazePAM 1 MG TAB PO PRN (10:42)
--- NOTE | 2017-01-13 11:01 | HHI.PR ---
Subjective Remarks looks and feels more comfortable. afebrile. walking in the hallway with no difficulty or sob. wants to go home today. Objective Vitals Vital Signs Date Time Temp Pulse Resp B/P (MAP) Pulse Ox O2 Delivery O2 Flow Rate FiO2 01/13/17 08:58 97.6 74 18 137/71 (93) 96 01/13/17 04:24 Room Air 01/13/17 04:00 97.9 81 20 114/72 (86) 96 01/13/17 00:00 97.7 84 18 135/76 (95) 97 01/12/17 20:17 93 21 01/12/17 20:00 99.1 100 20 126/57 (80) 98 01/12/17 18:04 96 01/12/17 16:59 98.4 96 18 118/68 (85) 96 01/12/17 12:09 98.8 91 18 135/79 (97) 96 I/O 01/12/17 01/12/17 01/12/17 01/13/17 01/13/17 01/13/17 07:00 15:00 23:00 07:00 15:00 23:00 Intake Total 480 ml 820 ml Balance 480 ml 820 ml Intake Oral 480 ml 720 ml IV Total 100 ml # Voids 1 3 6 4 # Bowel Movements 1 1 0 Result Diagram: 01/13/1771601/12/17 0859 Imaging Last Impressions Chest X-Ray 01/11/17 0836 Signed Impressions: Service Date/Time: Wednesday, January 11, 2017 08:50 - CONCLUSION: 1. Left-sided pneumonia as above. Followup examination is recommended if clinically indicated. Colin Yin MD Objective Remarks GENERAL: This is a well-nourished, well-developed patient, in no apparent distress. CARDIOVASCULAR: Regular rate and regular rhythm without murmurs, gallops, or rubs. RESPIRATORY: Clear to auscultation. Breath sounds equal bilaterally. No wheezes , rales, or rhonchi. GASTROINTESTINAL: Abdomen soft, non-tender, nondistended. Normal, active bowel sounds MUSCULOSKELETAL: Extremities without clubbing, cyanosis, or edema. NEURO: Alert & Oriented x4 to person, place, time, situation. Moves all ext x4 Procedures none Medications and IVs Current Medications Acetaminophen (Tylenol) 650 mg ONCE ONCE PO Last administered on 01/11/17 08: 49; Start 01/11/17 at 08:45; Stop 01/11/17 at 08:46; Status DC Sodium Chloride 1,000 ml @ 1,000 mls/hr Q1H ONCE IV Last administered on 08:48; Start 01/11/17 at 08:36; Stop 01/11/17 at 09:35; Status DC Sodium Chloride 1,000 ml @ 1,000 mls/hr Q1H ONCE IV Last administered on 08:49; Start 01/11/17 at 08:36; Stop 01/11/17 at 09:35; Status DC Sodium Chloride 1,000 ml @ 1,000 mls/hr Q1H ONCE IV Last administered on 09:53; Start 01/11/17 at 08:36; Stop 01/11/17 at 09:35; Status DC Sodium Chloride 600 ml @ 1,000 mls/hr Q36M ONCE IV Last administered on 09:53; Start 01/11/17 at 08:36; Stop 01/11/17 at 09:14; Status DC Ceftriaxone Sodium 2000 mg/ Sodium Chloride 100 ml @ 200 mls/hr ONCE STAT IV Last administered on 01/11/17 09:54; Start 01/11/17 at 08:58; Stop 01/11/17 at 09:27; Status DC Azithromycin 500 mg/Sodium Chloride 250 ml @ 250 mls/hr ONCE STAT IV Last administered on 01/11/17 10:40; Start 01/11/17 at 08:58; Stop 01/11/17 at 09:57 ; Status DC Potassium Bicarb/ Potassium Chloride (K-Lyte Cl Eff) 50 meq ONCE ONCE PO Last administered on 01/11/17 10:41; Start 01/11/17 at 10:00; Stop 01/11/17 at 10:01; Status DC Acetaminophen (Tylenol) 650 mg Q4H PRN PO FEVER/PAIN/HEADACHE Last administered on 01/11/17 17:06; Start 01/11/17 at 10:30 Ondansetron HCl (Zofran Inj) 4 mg Q8H PRN IV PUSH NAUSEA Last administered on 01/12/17 00:35; Start 01/11/17 at 10:30 Albuterol/ Ipratropium (Duoneb Neb) 1 ampule Q4HR NEB PRN NEB SHORTNESS OF BREATH Last administered on 01/11/17 17:22; Start 01/11/17 at 10:30 Potassium Chloride (KCl) 30 meq ONCE ONCE PO Last administered on 01/11/17 14 :18; Start 01/11/17 at 14:00; Stop 01/11/17 at 14:01; Status DC Levofloxacin/ Dextrose 100 ml @ 100 mls/hr Q24H IV ; Start 01/11/17 at 13:00; Stop 01/11/17 at 13:00; Status DC Lisinopril (Prinivil) 20 mg DAILY PO Last administered on 01/12/17 09:25; Start 01/12/17 at 09:00 Clonazepam (KlonoPIN) 1 mg DAILY PO Last administered on 01/12/17 09:25; Start 01/12/17 at 09:00; Stop 01/12/17 at 11:58; Status DC Levofloxacin/ Dextrose 150 ml @ 100 mls/hr Q24H IV Last administered on 13:00; Start 01/11/17 at 13:00 Albuterol/ Ipratropium (Duoneb Neb) 1 ampule TID NEB NEB Last administered on 01/13/17 08:00; Start 01/11/17 at 14:00 Prednisone (Deltasone) 20 mg BID PO Last administered on 01/13/17 08:26; Start 01/11/17 at 12:45 Acetaminophen/ Codeine Phosphate (Tylenol-Codeine #3) 1 tab ONCE ONCE PO Last administered on 01/11/17 20:09; Start 01/11/17 at 20:00; Stop 01/11/17 at 20:01 ; Status DC Clonazepam (KlonoPIN) 1 mg Q8HR PRN PO ANXIETY Last administered on 01/13/17 10:42; Start 01/12/17 at 12:00 A/P Problem List: (1) Pneumonia ICD Code: J18.9 - Pneumonia, unspecified organism Status: Acute (2) Sepsis ICD Code: A41.9 - Sepsis, unspecified organism Status: Acute Assessment and Plan A/P - sepsis due to left-sided pneumonia/ hemoptysis- failed two courses of po antibiotics-now clinically improved. continue with Levauin- neb treatment as needed. pulmonary consult appreciated. -hypertension; resumed home meds -hypokalemia; replaced. -abnormal UA- UC with gram positive luis daniel. Discharge Planning dc home today. see med list. f/u; pcp and pulmonary. Problem Qualifiers (1) Pneumonia: Qualified Codes: J18.9 - Pneumonia, unspecified organism (2) Sepsis: Qualified Codes: A41.9 - Sepsis, unspecified organism J Luis Payne MD Jan 13, 2017 11:01
[2017-01-13] MEDS ORDERED: NEBULIZER1 MI1 (11:03)
[2017-01-13] MEDS ORDERED: ALBU0.63 NEB (11:04)
[2017-01-13] MEDS ORDERED: VENTAER INH (11:04)
[2017-01-13] MEDS ORDERED: LEVA750T9 PO ×2 (11:04→13:29)
--- NOTE | 2017-01-13 11:07 | HHI.DS ---
Discharge Summary Admission Date Jan 11, 2017 at 10:29 Discharge Date: Jan 13, 2017 Admitting Diagnosis pneumonia, sepsis (1) Pneumonia ICD Code: J18.9 - Pneumonia, unspecified organism Diagnosis: Principal Status: Acute (2) Sepsis ICD Code: A41.9 - Sepsis, unspecified organism Diagnosis: Principal Status: Acute Procedures none Brief History - From Admission patient is a 46 y/o female with history of hypertension who presented to ER with three-week history of cough. she says that cough is productive of dark- greenish sputum- however she started to see some streaks of blood in her sputum yesterday. she had some on and off fever, chills and night sweats at home. she was treated initially with augmentin for seven days and later on with few-day course of Doxycyline with no significant improvement. CBC/BMP: 01/13/17 0717 01/12/17 0859 Significant Findings Laboratory Tests Test 01/11/17 08:35 01/11/17 08:40 01/11/17 08:45 01/12/17 08:59 White Blood Count 21.4 TH/MM3 (4.0-11.0) 18.3 TH/MM3 (4.0-11.0) Red Blood Count 3.97 MIL/MM3 (4.00-5.30) 3.82 MIL/MM3 (4.00-5.30) Neutrophils (%) (Auto) 87.9 % (16.0-70.0) 91.1 % (16.0-70.0) Lymphocytes (%) (Auto) 6.1 % (9.0-44.0) 7.1 % (9.0-44.0) Neutrophils # (Auto) 18.8 TH/MM3 (1.8-7.7) 16.7 TH/MM3 (1.8-7.7) Monocytes # (Auto) 1.1 TH/MM3 (0-0.9) Activated Partial Thromboplast Time 33.0 SEC (24.3-30.1) Albumin 3.2 GM/DL (3.4-5.0) Phosphorus Level 2.3 MG/DL (2.5-4.9) Alkaline Phosphatase 125 U/L (45-117) Aspartate Amino Transf (AST/SGOT) 12 U/L (15-37) Sodium Level 135 MEQ/L (136-145) Potassium Level 3.0 MEQ/L (3.5-5.1) Estimat Glomerular Filtration Rate 88 ML/MIN (>89) Urine Turbidity HAZY (CLEAR) Urine Protein 100 mg/dL (NEG-TRACE) Urine Ketones 10 mg/dL (NEG) Urine Occult Blood MOD (NEG) Urine Leukocyte Esterase SMALL (NEG) Urine RBC 26 /hpf (0-3) Urine WBC 7 /hpf (0-5) Urine Bacteria MOD /hpf (NONE) Urine Mucus MOD /lpf (OCC) Mean Platelet Volume 6.6 FL (7.0-11.0) Blood Urea Nitrogen 6 MG/DL (7-18) Random Glucose 141 MG/DL (74-106) Test 01/13/17 07:17 White Blood Count 16.8 TH/MM3 (4.0-11.0) Red Blood Count 3.98 MIL/MM3 (4.00-5.30) Mean Platelet Volume 6.7 FL (7.0-11.0) Neutrophils (%) (Auto) 85.6 % (16.0-70.0) Neutrophils # (Auto) 14.4 TH/MM3 (1.8-7.7) Band Neutrophils % 15 % (0-6) Neutrophils # (Manual) 14.3 TH/MM3 (1.8-7.7) Metamyelocytes 3 % (0-1) Myelocytes 5 % (0-0) Imaging Last Impressions Chest X-Ray 01/11/17 0836 Signed Impressions: Service Date/Time: Wednesday, January 11, 2017 08:50 - CONCLUSION: 1. Left-sided pneumonia as above. Followup examination is recommended if clinically indicated. Colin Yin MD PE at Discharge GENERAL: This is a well-nourished, well-developed patient, in no apparent distress. CARDIOVASCULAR: Regular rate and regular rhythm without murmurs, gallops, or rubs. RESPIRATORY: Clear to auscultation. Breath sounds equal bilaterally. No wheezes , rales, or rhonchi. GASTROINTESTINAL: Abdomen soft, non-tender, nondistended. Normal, active bowel sounds MUSCULOSKELETAL: Extremities without clubbing, cyanosis, or edema. NEURO: Alert & Oriented x4 to person, place, time, situation. Moves all ext x4 Hospital Course - sepsis due to left-sided pneumonia/ hemoptysis- failed two courses of po antibiotics-now clinically improved. continue with Levauin- neb treatment as needed. pulmonary consult appreciated. -hypertension; resumed home meds -hypokalemia; replaced. -abnormal UA- UC with gram positive luis daniel. Pt Condition on Discharge: Stable Discharge Disposition: Discharge Home Discharge Time: <= 30 minutes Discharge Instructions DIET: Follow Instructions for: Heart Healthy Diet Activities you can perform: Regular-No Restrictions Follow up Referrals: PCP Follow-up Pulmonology New Medications: Albuterol 18 GM Inh (Ventolin Hfa 18 GM Inh) 90 Mcg/Act Aer 2 PUFF INH Q6H PRN for SHORTNESS OF BREATH, #1 INHALER 0 Refills Albuterol Neb (Albuterol Neb) 0.63 Mg/3 Ml Neb 0.63 MG NEB Q6HR NEB PRN for SHORTNESS OF BREATH, #25 NEBULE 0 Refills Levofloxacin (Levaquin) 750 Mg Tablet 750 MG PO DAILY for Infection for 7 Days, #7 TAB 0 Refills Nebulizer (Nebulizer) 1 Mis Mis EA .ROUTE DIRECTED for Breathing Treatment, #1 0 Refills Prednisone (Prednisone) 10 Mg Tab 10 MG PO DIRECTED for Shortness of Breath for 8 Days, TAB 0 Refills 20 mg po daily for four days then 10 mg po daily for four days then stop. Continued Medications: Benazepril (Benazepril) 20 Mg Tab 20 MG PO DAILY for Blood Pressure Management, #60 TAB 0 Refills Clonazepam (Klonopin) 1 Mg Tab 1 MG PO DAILY, #60 TAB 0 Refills Discontinued Medications: Doxycycline Hyclate (Doxycycline Hyclate) 100 Mg Cap 100 MG PO BID for Infection, CAP 0 Refills J Luis Payne MD Jan 13, 2017 11:07
[2017-01-13 12:27] VITALS: BP 143/77; PULSE 89; RESP 18; TEMP 98.8; O2SAT 94
[2017-01-13] MEDS: LEVOFLOXACIN 750 MG PREMIX INJ 150 ML IV SCH (13:07)
[2017-01-13] MEDS ORDERED: PRED10 PO (13:27)
== END 2017-01-13 14:46 | disposition home or self-care (01) | DRG 871 ==
LOC: NEPE 08:12 → NEDA 10:29 → N05B 11:49
PROVIDERS: ADMIT Internal Medicine; ATTEND Internal Medicine
DX: A41.9 Sepsis, unspecified organism (principal); J18.9 Pneumonia, unspecified organism; R04.2 Hemoptysis; I10 Essential (primary) hypertension; E87.6 Hypokalemia; E03.9 Hypothyroidism, unspecified; F17.210 Nicotine dependence, cigarettes, uncomplicated; F41.8 Other specified anxiety disorders; R00.0 Tachycardia, unspecified
CPT/HCPCS: 71010; 76937; 80048; 80053; 81001; 83605; 83735; 84100; 85007; 85025; 85027; 85610; 85730; 87040; 87086; 87449; 87804; 93005; 94640; 94664; 96361; 96365; J0456; J0696; J1956; J2405; J7030; J7050; J7512